=== PATIENT | female | born 1980 | race Caucasian/White ===

== ENCOUNTER 2017-04-15 00:01 | Emergency (ER) | payer SELFPAY ==
[~2017-04-15] VITALS: Ht 172.7 cm; Wt 92.6 kg
[2017-04-15 00:01] VITALS: Ht 172.7 cm; Wt 92.6 kg
[~2017-04-15 00:01] MED LIST: CITA20TA9 PO; TRAZ150T80 PO
--- OUTSIDE RECORDS SUMMARY | 2017-04-15 00:08 | XMS REPORT | Continuity of Care Document ---
Author Author [facility] Organization [facility] Address Unknown Phone Unavailable Support Name Relationship Address Phone CHEEMAMERT Sarah RIVERS Caregiver [address] [address] Unavailable QUIN KAUR MD Caregiver [address] [place] [address] Unavailable KELLY RIVERA MD Caregiver [address] [place] [address] Unavailable KELLY RIVERA MD Caregiver [address] [place] [address] Unavailable REINA FLORES Next Of Kin [address] [place] [address] Insurance Providers Guarantor Mayuri Flores Address [address] [place] [address] Email DENIED TO [facility] Policy Number [id number] Subscriber's Name Mayuri Flores Relationship 18 Self Group Number [id number] Group Name [id number] Effective Date 15 Advance Directives Directive Response Recorded Date/Time Advanced Directives Type Unable to Obtain 02/09/17 12:15pm Ordered Resuscitation Status Full Code, unverified 02/09/17 2:48pm DPOA for Healthcare Only No 02/09/17 3:43pm Living Will No 02/09/17 3:43pm Problems Active Problems Medical Problem Onset Date Status Acute hypernatremia Unknown Acute Alcohol intoxication Unknown Acute Alcoholism /alcohol abuse Unknown Chronic Complicated UTI (urinary tract infection) Unknown Acute Depression Unknown Chronic Hypokalemia Unknown Acute Transaminitis Unknown Acute Surgical Problem Onset Date Status Hx of tonsillectomy Unknown Past Problems Medical Problem Onset Date Alcohol intoxication Unknown Alcohol intoxication Unknown Contusion of right orbit Unknown ETOH abuse Unknown Laceration of chin Unknown Multiple contusions Unknown UTI (urinary tract infection) Unknown Medications Current Home Medications Medication Dose Units Route Directions Days Qty Instructions Start Date Citalopram Hydrobromide (Citalopram Hbr) 20 Mg Tablet 20 Mg Oral Daily 02/09/17 Trazodone Hcl 150 Mg Tablet 150 Mg Oral Bedtime 12/01/16 Past Home Medications Medication Directions Ordered Status Control , 06/07/10 Discontinued Flaxseed Oil (Flax Seed Oil) 1,000 Mg Capsule, 2 Cap Oral Daily 10/29/10 Discontinued Lexapro , 1 Tab Oral Daily 10/29/10 Discontinued Naproxen Sodium (Aleve) 220 Mg Tablet, 220 Mg Oral As Needed 06/07/10 Discontinued [place]-3 Fatty Acids (Fish Oil) 500 Mg Capsule, 2 Cap Oral Daily 10/29/10 Discontinued [place]yn[place] , Oral Daily 10/30/10 Discontinued Social History Social History Problem Response Recorded Date/Time Onset Date Status Hx Substance Use No 02/09/2017 2:13pm Not Applicable Not Applicable Hx Alcohol Use Y HX OF ETOH ABUSE 2009, 2010, 2012, AND CURRENT 02/09/2017 2: 13pm Not Applicable Not Applicable Has the pt used tobacco in the last 12 months No 02/09/2017 3:46pm Not Applicable Not Applicable Query Response Start Date Stop Date Smoking Status Never smoker Hospital Discharge Instructions No hospital discharge instructions. Plan of Care Discharge Date 02/09/17 8:49pm Disposition 07 AGAINST MEDICAL ADVICE Prescriptions See Medication Section Functional Status Query Response Date Recorded Mobility Status Ambulatory February 09, 2017 3:40pm Assistive Devices None February 09, 2017 3:40pm Activity Limitations Weakness Fatigue February 09, 2017 3:40pm Feeding Ability Independent February 09, 2017 3:40pm Toileting Ability Independent February 09, 2017 3:40pm Grooming Ability Independent February 09, 2017 3:40pm Dressing Ability Independent February 09, 2017 3:40pm Driving Ability Dependent February 09, 2017 3:40pm Housework Ability Independent February 09, 2017 3:40pm Meal Preparation Ability Independent February 09, 2017 3:40pm Stair Climbing Ability Independent February 09, 2017 3:40pm Ability to complete ADL's impeded by Change in Cognition February 09, 2017 3:43pm Cognitive/Perceptual Impairments Impaired vision February 09, 2017 3:40pm Visual Assistive Devices Glasses February 09, 2017 3:40pm Allergies, Adverse Reactions, Alerts Allergen Type Severity Reaction Status Last Updated NKDA Allergy Unknown Active 10/13/16 Immunizations Query Response on File Recorded Date/Time Hx Influenza Vaccination No 02/09/17 3:46pm Hx Pneumococcal Vaccination No 02/09/17 3:46pm Hx Influenza Vaccination No 02/09/17 3:46pm Hx Tetanus Diptheria Y 10 yrs ago 03/09/13 2:30am Vital Signs Acute Vital Signs Vital Response Date/Time Temperature (Fahrenheit) 98.4 deg F (96.8 - 99.1) 02/09/2017 3:19pm Temperature (Calculated Celsius) 36.16815 degrees C (36.0 - 37.3) 02/09/2017 3:19pm Pulse Rate (adult) 89 bpm (60 - 100) 02/09/2017 3:19pm Respiratory Rate 16 breaths/min (10 - 20) 02/09/2017 3:19pm O2 Sat by Pulse Oximetry 94 % (90 - 100) 02/09/2017 3:19pm Oxygen Delivery Method Room Air 02/09/2017 3:19pm Blood Pressure 140/75 mm Hg 02/09/2017 3:19pm Blood Pressure Source Automatic Cuff 02/09/2017 3:19pm Height (Feet) 5 feet 02/09/2017 3:42pm Height (Inches) 10.00 inches 02/09/2017 3:42pm Weight (Kilograms) 89.400 kg 02/09/2017 3:42pm Body Mass Index (BMI) 28.3 02/09/2017 3:42pm Results Laboratory Results Test Name Result Units Flags Reference Collection Date/Time Result Date/ Time Comments Neutrophils % (Manual) 95.0 % H 33-66 12/01/2016 1:02pm 12/01/2016 1: 21pm Band Neutrophils % 1.0 % 0-6 12/01/2016 1:02pm 12/01/2016 1:21pm Lymphocytes % (Manual) 2.0 % L 23-45 12/01/2016 1:02pm 12/01/2016 1: 21pm Monocytes % (Manual) 2.0 % 0-9.0 12/01/2016 1:02pm 12/01/2016 1:21pm Band Neutrophils # 0.1 T/MM3 12/01/2016 1:02pm 12/01/2016 1:21pm Absolute Neutrophils (Manual) 11.5 T/MM3 H 1.8-7.7 12/01/2016 1:02pm 1:21pm Lymphocytes # (Manual) 0.2 T/MM3 L 1-4.8 12/01/2016 1:02pm 12/01/2016 1: 21pm Monocytes # (Manual) 0.2 T/MM3 0-0.8 12/01/2016 1:02pm 12/01/2016 1: 21pm Red Cell Morphology Comment NORMAL 12/01/2016 1:02pm 12/01/2016 1: 21pm Urine Hyaline Casts 3-5 /LPF 12/01/2016 2:09pm 12/01/2016 2:35pm White Blood Count 6.7 T/MM3 4.5-11.0 02/09/2017 1:0902/09/2017 1: 18pm Red Blood Count 5.40 M/MM3 H 4.00-5.20 02/09/2017 1:0902/09/2017 1: 18pm Hemoglobin 16.6 GM/DL H 12-16 02/09/2017 1:09pm 02/09/2017 1:18pm Hematocrit 48.6 % H 36-46 02/09/2017 1:02/09/2017 1:18pm Mean Corpuscular Volume 90.0 UM3 80-100 02/09/2017 1:02/09/2017 1: 18pm Mean Corpuscular Hemoglobin 30.7 UUG 26-34 02/09/2017 1:2016 1:18pm Mean Corpuscular Hemoglobin Concent 34.2 GM/DL 31-37 02/09/2017 1:0902/09/2017 1:18pm RDW Standard Deviation 49.9 FL 36.9-50.2 02/09/2017 1:02/09/2017 1 :18pm Platelet Count 242 T/MM3 130-400 02/09/2017 1:02/09/2017 1:18pm Mean Platelet Volume 9.8 UM3 9.4-12.4 02/09/2017 1:02/09/2017 1: 18pm Neutrophils (%) (Auto) 63.4 % 33-66 02/09/2017 1:02/09/2017 1: 18pm Lymphocytes (%) (Auto) 30.1 % 23-45 02/09/2017 1:02/09/2017 1: 18pm Monocytes (%) (Auto) 4.3 % 0-9.0 02/09/2017 1:02/09/2017 1:18pm Eosinophils (%) (Auto) 0.9 % 0-4 02/09/2017 1:02/09/2017 1:18pm Basophils (%) (Auto) 1.2 % 0-2 02/09/2017 1:02/09/2017 1:18pm Immature Granulocyte % (Auto) 0.1 % 0.0-0.5 02/09/2017 1:2016 1:18pm Absolute Neutrophils (auto) 4.3 T/MM3 1.8-7.7 02/09/2017 1:2016 1:18pm Absolute Lymphocytes (auto) 2.0 T/MM3 1-4.8 02/09/2017 1:2016 1:18pm Absolute Monocytes (auto) 0.3 T/MM3 0-0.8 02/09/2017 1:02/09/2017 1:18pm Absolute Eosinophils (auto) 0.1 T/MM3 0-0.5 02/09/2017 1:2016 1:18pm Absolute Basophils (auto) 0.1 T/MM3 0-0.2 02/09/2017 1:02/09/2017 1:18pm Absolute Immature Granulocyte (auto 0.01 T/MM3 0.00-0.03 02/09/2017 1: 02/09/2017 1:18pm Icterus Index < 2 0-7 02/09/2017 1:02/09/2017 1:25pm Chemistry Specimen Hemolysis < 15 0-25 02/09/2017 1:02/09/2017 1 :25pm 0-25: Specimen Exhibited No Hemolysis. Turbidity < 20 0-20 02/09/2017 1:02/09/2017 1:25pm Sodium Level 155 MEQ/L H 134-144 02/09/2017 1:02/09/2017 1:25pm Potassium Level 3.3 MEQ/L L 3.6-5 02/09/2017 1:02/09/2017 1:25pm Chloride Level 108 MEQ/L H 98-107 02/09/2017 1:02/09/2017 1:25pm Carbon Dioxide Level 28 MEQ/L 22-30 02/09/2017 1:02/09/2017 1: 25pm Anion Gap 19 MEQ/L H 5-15 02/09/2017 1:02/09/2017 1:25pm Blood Urea Nitrogen 7.0 MG/DL 7-17 02/09/2017 1:02/09/2017 1:25pm Creatinine 0.6 MG/DL L 0.7-1.2 02/09/2017 1:02/09/2017 1:25pm BUN/Creatinine Ratio 12 RATIO 6-26 02/09/2017 1:02/09/2017 1:25pm Glomerular Filtration Rate Calc 114 02/09/2017 1:02/09/2017 1: 25pm Glucose Level 100 MG/DL 65-110 02/09/2017 1:02/09/2017 1:25pm Calculated Osmolality 295 MOSM/KG H 261-280 02/09/2017 1:2016 1:25pm Calcium Level 7.7 MG/DL L 8.4-10.2 02/09/2017 1:02/09/2017 1:25pm Total Bilirubin 0.70 MG/DL 0.20-1.30 02/09/2017 1:02/09/2017 1: 25pm Alkaline Phosphatase 150 U/L H 38-126 02/09/2017 1:02/09/2017 1: 25pm Total Protein 7.0 G/DL 6.3-8.2 02/09/2017 1:02/09/2017 1:25pm Albumin 4.0 G/DL 3.5-5.0 02/09/2017 1:02/09/2017 1:25pm Globulin 3.0 G/DL 2.4-3.6 02/09/2017 1:02/09/2017 1:25pm Albumin/Globulin Ratio 1.3 RATIO 1.1-2.2 02/09/2017 1:02/09/2017 1 :25pm Aspartate Amino Transf (AST/SGOT) 588 U/L H 14-36 02/09/2017 1:10/2017 1:25pm Alanine Aminotransferase (ALT/SGPT) 226 U/L H 9-52 02/09/2017 1:10/2017 1:25pm Lipase 56 U/L 23-300 02/09/2017 1:09pm 02/09/2017 2:57pm Acetaminophen Level < 10 UG/ML L 10-30 02/09/2017 1:09pm 02/09/2017 1: 25pm TOXIC <4 HR POST INGESTION: >150 MG/L; TOXIC <12 HR POST INGESTION: >50 MG/L Salicylates Level < 1.0 MG/DL L 2-20 02/09/2017 1:09pm 02/09/2017 1: 25pm Alcohol, Quantitative 470 MG/DL <10 02/09/2017 1:09pm 02/09/2017 1: 35pm Urine Collection Type STRAIGHT CATH 02/09/2017 1:pm 02/09/2017 1: 16pm Urine Color YELLOW YELLOW 02/09/2017 1:pm 02/09/2017 1:16pm Urine Turbidity SL CLOUDY CLEAR 02/09/2017 1:02/09/2017 1:24pm --- 02/09/17 1322 --- UTURB previously reported as: CLEAR Urine Specific [place] 1.025 1.015-1.025 02/09/2017 1:09pm 2016 1:16pm Urine pH 5.0 5.0-8.0 02/09/2017 1:09pm 02/09/2017 1:16pm Urine Leukocyte Esterase 3+ A NEGATIVE 02/09/2017 1:09pm 02/09/2017 1: 16pm Urine Nitrite POSITIVE A NEGATIVE 02/09/2017 1:pm 02/09/2017 1:16pm Urine Protein TRACE A NEGATIVE 02/09/2017 1:pm 02/09/2017 1:16pm Urine Glucose (UA) NEGATIVE NEGATIVE 02/09/2017 1:pm 02/09/2017 1: 16pm Urine Ketones NEGATIVE NEGATIVE 02/09/2017 1:09pm 02/09/2017 1:16pm Urine Urobilinogen 0.2 EU/DL NORMAL 02/09/2017 1:09pm 02/09/2017 1: 16pm Urine Bilirubin NEGATIVE NEGATIVE 02/09/2017 1:09pm 02/09/2017 1: 16pm Urine Blood NEGATIVE NEGATIVE 02/09/2017 1:09pm 02/09/2017 1:16pm Urine WBC 50-200 /HPF H 0-5 02/09/2017 1:09pm 02/09/2017 1:24pm Urine RBC 0-1 /HPF 0-3 02/09/2017 1:09pm 02/09/2017 1:24pm Urine Bacteria 4+ H NEGATIVE 02/09/2017 1:09pm 02/09/2017 1:24pm Urine Culture Indicated CULT REFLEXED &SETUP 02/09/2017 1:09pm 10/2017 1:24pm Microbiology Results Procedure Source Organism/Result Collection Date/Time Result Date/Time Result Status Urine Culture Urine, Straight Cath CULTURE INITIATED - RESULTS PENDING 10/2017 1:24pm 02/09/2017 1:24pm Preliminary Procedures Procedure Status Date Provider(s) Routine venipuncture Completed 12/01/16 Comprehen metabolic panel Completed 12/01/16 Drug screen quantalcohols Completed 12/01/16 Urinalysis auto w/scope Completed 12/01/16 Chorionic gonadotropin assay Completed 12/01/16 Complete cbc w/auto diff wbc Completed 12/01/16 Hydrate iv infusion add-on Completed 12/01/16 Hydrate iv infusion add-on Completed 12/01/16 Ther/proph/diag inj iv push Completed 12/01/16 Emergency dept visit Completed 12/01/16 733384"INJECTION, ONDANSETRON HYDROCHLORIDE, PER 1 MG" Completed 12/01/16 [id number]"INFUSION, NORMAL SALINE SOLUTION , 1000 CC" Completed 12/01/16 Encounters Encounter Location Arrival/Admit Date Discharge/Depart Date Attending Provider Discharged Inpatient (obs) [facility] 02/09/17 2:54pm 02/09/17 8: 49pm KELLY RIVERA MD Departed Emergency Room [facility] 12/01/16 12:16pm 12/01/16 6: 52pm DARINEL IRWIN MD
[2017-04-15] MEDS ORDERED: NORMAL SALINE 1,000 ML IV ONE (00:15)
[2017-04-15] MEDS ORDERED: PHEN-412 PO (00:26)
[2017-04-15 00:28] LABS: BASOPHILS % (AUTO) 0.2 % (0-2); EOSINOPHILS # (AUTO) 0.1 T/MM3 (0-0.5); EOSINOPHILS % (AUTO) 0.6 % (0-4); HCT - HEMATOCRIT 43.1 % (36-46); HGB - HEMOGLOBIN 14.9 GM/DL (12-16); IMMATURE GRANULOCYTE # (AUTO) 0.01 T/MM3 (0.00-0.03); IMMATURE GRANULOCYTE % (AUTO) 0.1 % (0.0-0.5); LYMPHOCYTES # (AUTO) 5.1 T/MM3 (1-4.8); LYMPHOCYTES % (AUTO) 53.5 % (23-45); MEAN CORPUSCULAR HGB 31.4 UUG (26-34); MEAN CORPUSCULAR HGB CONC(MCHC 34.6 GM/DL (31-37); MEAN CORPUSCULAR VOLUME 90.9 UM3 (80-100); MONOCYTES # (AUTO) 0.7 T/MM3 (0-0.8); MONOCYTES % (AUTO) 7.7 % (0-9.0); NEUTROPHILS #(AUTO)-ABSOLUTE 3.6 T/MM3 (1.8-7.7); NEUTROPHILS % (AUTO) 37.9 % (33-66); RED BLOOD COUNT 4.74 M/MM3 (4.00-5.20); WBC - WHITE BLOOD COUNT 9.5 T/MM3 (4.5-11.0)
--- NOTE | 2017-04-15 00:34 | ERPDOC ---
Departure Disposition Decision Date: April 15, 2017 Disposition Decision Time: 01:45 Disposition: 01 DISCHARGED HOME, SELF-CARE Impression Impression Impression: Primary Impression: Alcohol intoxication Complication of substance-induced condition: uncomplicated Qualified Codes: F10.920 - Alcohol use, unspecified with intoxication, uncomplicated Additional Impression: Alcoholism /alcohol abuse Severity: Severe Condition: Improved Seen By: Physician only Referrals: QUIN KAUR MD (Family) Patient Instructions: Alcohol Intoxication (ED) Problems/Meds/Labs Reviewed?: Yes Medications reviewed and manag: Yes Additional Instructions: Decrease alcohol intake as much as possible Contact your primary physician or any local resources to help with alcohol abuse Follow up care ordered?: Yes Mental Status: Alert HPI - Psychosocial General Chief Complaint: Substance Abuse Stated Complaint: INTOXICATED Time Seen by MD: 00:07 Source: patient, police, EMS Exam Limitations: intoxication HPI - Psychosocial Initial Comments Patient was picked up in her car by police, with severe alcohol intoxication, blowing 0.416 on PBT. At the scene patient was unable to questions other then yes and no, and when asked if she was trying to harm herself patient initially said yes, but now currently denies any suicidal or homicidal ideation, or self- harm ideation. Patient apparently has been sitting in her [place] the [place] drinking amounts of orange juice and vodka. Patient has a history of depression as well as severe alcohol abuse Severity: severe Associated Symptoms: impaired concentration Allergies: Coded Allergies: NKDA (Verified Allergy, Unknown, 10/13/16) Past History Patient Surgical History Previous tonsillectomy Past Medical History Metabolic: hypertension Female: UTI, pyelonephritis Psychological: alcohol abuse, depression Surgical History General: tonsils Family History Family PMH: FOUND: other Vaccines Hx Influenza Vaccination: No Hx Pneumococcal Vaccination: No Hx Tetanus Diptheria: Yes (10 yrs ago) Social History Smoking Status: Never smoker Does patient use chewing tobac: No Second Hand Exposure: No Substance Use Type: does not use, unknown Alcohol Intake: daily Last Drink: prior to arrival Marital Status: Single Review of Systems Constitutional Constitutional: DENIES: appetite decrease, appetite increase, chills, dizziness , fever, weakness ENMT Ears: DENIES: pain Hearing: DENIES: hearing loss, tinnitus Balance: DENIES: vertigo Mouth/Throat: DENIES: change in swallowing, change in voice, hoarsness, painful swallowing, sore throat Cardiovascular Cardiac: DENIES: chest pain, dyspnea on exertion Rhythm/Rate: DENIES: irregular beat, palpitations, tachycardia Vascular: DENIES: pedal edema Pulmonary Respiratory: DENIES: cough, dyspnea, pleuritic chest pain GI Upper Abdomen: DENIES: dysphagia, heartburn/indigestion, nausea, pain, vomiting Lower Abdomen: DENIES: blood in stool, constipation, diarrhea, pain General: DENIES: burning, dysuria, frequency, pain, urgency Musculoskeletal General: DENIES: cramps, joint pain, joint swelling, pain, weakness Integumentary Skin: DENIES: rash, sores Neurological General: DENIES: headache, numbness, tingling, vertigo, weakness Psychiatric Psychiatric: DENIES: anxiety, depression, nervousness Physical Exam General General Nourishment: well nourished, well developed, appears stated age General Body Habitus: disheveled Vitals and Pain First Documented Vital Signs Date Time Temp Pulse Resp B/P Pulse Ox O2 Delivery O2 Flow Rate FiO2 04/15/17 00:01 98.5 100 16 122/83 93 Room Air Weight: Kilograms: Height (feet): 5 Height (inches): 10.00 Triage Pain Scale: RN VS reviewed by Provider: Yes Comments She appears heavily intoxicated with slurred speech, glazed eyes, significant lateral nystagmus, and a strong alcohol odor Normal Exams: Head: Normocephalic w/o trauma Eyes: Pupils are PERRLA w/ EOMI, No scleral icterus, irritation, or foreign bodies noted ENMT: No facial trauma, nasal exudates, pharyngeal erythema, or exudates are noted Neck: Full range of motion, without adenopathy, JVD, bruits or thyromegaly Chest/Resp: Clear all muñoz, with good airflow, and symmetry bilaterally CV: Regular rate and rhythm, without murmur or gallop, Pulses 2+ all extremities, capillary refill, <2 seconds all ext., no pedal edema noted Abdomen: Bowel sounds positive, soft, non-tender, non-distended, no hepatosplenomegaly, masses or bruits noted Lymphatic: No lymphadenopathy, or lymphedema noted Musculoskeletal: No tenderness, or deformity noted, good range of motion, all extremities Integumentary: No rashes, hives, or bruising noted, hair and nails, without abnormality Neurologic (brief) Neurological Brief: FOUND: CN w/o gross def to obs, ataxia, motor-no gross deficits, sensory-no gross deficits Psychiatric (brief) Psychiatric Brief: NOT FOUND: alert, attentive, normal affect, oriented Progress Results/Orders Orders Procedure Category Date Status Time Iv Lock (Ed Only) EDM 04/15/17 Transmitted 00:09 Cmp - Comprehensive LAB 04/15/17 Complete Metabolic Ethanol LAB 04/15/17 Complete Drug Screen LAB 04/15/17 Complete Urine-Test At [facility] [place] 00:09 Cbc W/Auto LAB 04/15/17 Complete Diff-Reflex Manual Lipase LAB 04/15/17 Complete LAB 04/15/17 Complete Qualitative, Urine 00:09 Ua, Dip Wreflex LAB 04/15/17 Complete Microsc [facility] Behavioral Intervention Specialist 00:09 Normal Saline (Normal PHA 04/15/17 Complete Saline Iv) 00:15 Lab Results Laboratory Tests Test 04/15/17 00:20 04/15/17 00:59 White Blood Count 9.5T/MM3 Red Blood Count 4.74M/MM3 Hemoglobin 14.9GM/DL Hematocrit 43.1% Mean Corpuscular Volume 90.9UM3 Mean Corpuscular Hemoglobin 31.4UUG Mean Corpuscular Hemoglobin Concent 34.6GM/DL RDW Standard Deviation 50.4FL Platelet Count 293T/MM3 Mean Platelet Volume 10.0UM3 Immature Granulocyte % (Auto) 0.1% Neutrophils (%) (Auto) 37.9% Lymphocytes (%) (Auto) 53.5% Monocytes (%) (Auto) 7.7% Eosinophils (%) (Auto) 0.6% Basophils (%) (Auto) 0.2% Absolute Immature Granulocyte (auto 0.01T/MM3 Absolute Neutrophils (auto) 3.6T/MM3 Absolute Lymphocytes (auto) 5.1T/MM3 Absolute Monocytes (auto) 0.7T/MM3 Absolute Eosinophils (auto) 0.1T/MM3 Absolute Basophils (auto) 0.0T/MM3 Turbidity < 20 Sodium Level 155MEQ/L Potassium Level 3.2MEQ/L Chloride Level 109MEQ/L Carbon Dioxide Level 27MEQ/L Anion Gap 19MEQ/L Blood Urea Nitrogen 5.0MG/DL Creatinine 0.6MG/DL Glomerular Filtration Rate Calc 114 BUN/Creatinine Ratio 8RATIO Glucose Level 131MG/DL Calculated Osmolality 296MOSM/KG Calcium Level 8.9MG/DL Total Bilirubin 0.40MG/DL Icterus Index < 2 Aspartate Amino Transf (AST/SGOT) 49U/L Alanine Aminotransferase (ALT/SGPT) 50U/L Alkaline Phosphatase 100U/L Total Protein 7.0G/DL Albumin 4.4G/DL Globulin 2.6G/DL Albumin/Globulin Ratio 1.7RATIO Lipase 43U/L Chemistry Specimen Hemolysis 21 Alcohol, Quantitative 385MG/DL Urine Collection Type Straight cath Urine Color Yellow Urine Turbidity Clear Urine pH 5.5 Urine Specific Only <=1.005 Urine Protein Negative Urine Glucose (UA) Negative Urine Ketones Negative Urine Blood Negative Urine Nitrite Negative Urine Bilirubin Negative Urine Urobilinogen 0.2EU/DL Urine Leukocyte Esterase Negative Urinalysis Comment Microscopic not ind. Urine Test Negative Urine Opiates Screen NegativeNG/ML Urine Oxycodone Screen NegativeNG/ML Urine Methadone Screen NegativeNG/ML Urine Propoxyphene Screen NegativeNG/ML Urine Barbiturates Screen NegativeNG/ML Urine Tricyclic Antidepressants NegativeNG/ML Urine Phencyclidine Screen NegativeNG/ML Urine Amphetamines Screen NegativeNG/ML Urine Methamphetamines Screen NegativeNG/ML Urine Benzodiazepines Screen NegativeNG/ML Urine Cocaine Screen NegativeNG/ML Urine Cannabinoids Screen NegativeNG/ML Medications Current ED Medications Sodium Chloride (Normal Saline IV) 1,000 ml @ 0 mls/hr Q0M ONCE IV ; Start at 00:15; Stop 04/15/17 at 00:16; Status DC Progress Progress EtOH - elevated 358 CBC - normal CMP/L - minor abnormalities consistent with dehydration and chronic alcohol abuse and he UA/P - normal UDS - negative Patient given 1 L normal saline IV fluid bolus in addition to 4 of Zofran given in route - patient resting peacefully After 2 hours of observation in the ER, patient has no untoward effects of alcohol other than significant intoxication. Patient is maintaining her airway and ambulates without difficulty, on multiple occasions patient denies any suicidal or homicidal ideation or self-harm ideation. Call was made to the patient's mother to try to arrange a ride home, no answer, but message was left on the machine. Didn't police dispatcher is willing to take the patient home, and will assure arrival. ADRIANA STEWART MD 15, 2017 00:34
[2017-04-15 00:40] LABS: ALBUMIN 4.4 G/DL (3.5-5.0); ALBUMIN/GLOBULIN RATIO 1.7 RATIO (1.1-2.2); ALKALINE PHOSPHATASE 100 U/L (38-126); ALT (SGPT) 50 U/L (9-52); ANION GAP 19 MEQ/L (5-15); AST (SGOT) 49 U/L (14-36); BUN/CREATININE RATIO 8 RATIO (6-26); CALCIUM 8.9 MG/DL (8.4-10.2); CHLORIDE 109 MEQ/L (98-107); CO2 - CARBON DIOXIDE 27 MEQ/L (22-30); CREATININE 0.6 MG/DL (0.7-1.2); GLOMERULAR FILTRATION RATE 114; GLUCOSE 131 MG/DL (65-110); POTASSIUM 3.2 MEQ/L (3.6-5); SODIUM 155 MEQ/L (134-144)
[2017-04-15 00:47] LABS: ETHANOL 385 MG/DL (<10)
--- NOTE | 2017-04-15 00:53 | NUR ---
BR PT IS UP TO BEDSIDE COMMODE WITH NO ASSISTANCE. LAB PRESENT TO COLLECT URINE SAMPLE.
[2017-04-15 00:57] LABS: LIPASE 43 U/L (23-300)
[2017-04-15 01:05] LABS: BLOOD, URINE NEGATIVE (NEGATIVE); COLOR,URINE YELLOW (YELLOW); LEUKOCYTE ESTERASE ,URINE NEGATIVE (NEGATIVE); NITRITE,URINE NEGATIVE (NEGATIVE); UROBILINOGEN,URINE 0.2 EU/DL (NORMAL)
[2017-04-15 01:23] LABS: AMPHETAMINE SCREEN,URINE NEGATIVE; BARBITURATE SCREEN,URINE NEGATIVE; BENZODIAZEPINES SCREEN,URINE NEGATIVE; CANNABINOID SCREEN,URINE NEGATIVE; COCAINE SCREEN,URINE NEGATIVE; METHADONE SCREEN, URINE NEGATIVE; METHAMPHETAMINE SCREEN, URINE NEGATIVE; OPIATE SCREEN,URINE NEGATIVE; PHENCYCLIDINE SCREEN,URINE NEGATIVE; TRICYCLIC ANTIDEPRESSANT,URINE NEGATIVE
--- NOTE | 2017-04-15 01:30 | NUR ---
STATUS PT IS SLEEPING IN BED AT THIS TIME, NO S/S OF ACUTE DISTRESS.
[2017-04-15 02:19] VITALS: BP 110/63; PULSE 92; RESP 12; TEMP 98.5; O2SAT 96
--- NOTE | 2017-04-15 02:19 | NUR ---
DEPART PT IS DISCHARGED AT THIS TIME, INSTRUCTIONS ARE REVIEWED AND UNDERSTANDING IS VOICED. PT LEAVES AMBULATORY WITH HER MOTHER WHO WILL DRIVE HER HOME.
== END 2017-04-15 02:19 | disposition home or self-care (01) ==
LOC: ED 00:01
DX: F10.220 Alcohol dependence with intoxication, uncomplicated (principal); T51.0X1A Toxic effect of ethanol, accidental (unintentional), initial encounter; Y90.8 Blood alcohol level of 240 mg/100 ml or more
CPT/HCPCS: 36415; 80053; 80306; 80307; 81003; 81025; 83690; 85025